=== PATIENT | female | born 1990 | race Caucasian/White ===

== ENCOUNTER 2016-12-11 10:01 | Outpatient (CLI) | payer OTHER ==
[2016-12-11 11:45] LABS: AMNI OBC PASS; AMNISURE NEGATIVE (NEGATIVE)
[2016-12-11] MEDS ORDERED: PREN-3 PO (12:21)
== END 2016-12-11 12:30 | disposition home or self-care (01) ==
LOC: LDOP 10:01
PROVIDERS: ATTEND Obstetrics & Gynecology Maternal & Fetal Medicine
DX: O42.90 Premature rupture of membranes, unspecified as to length of time between rupture and onset of labor, unspecified weeks of gestation (principal); Z3A.00 Weeks of gestation of pregnancy not specified
CPT/HCPCS: 59025; 84112; 99201; G0463